=== PATIENT | female | born 1935 | race Two or more races ===

== ENCOUNTER 2018-12-11 09:43 | Inpatient (IN) | payer MEDICARE, MEDICAID ==
[2018-12-11] MEDS ORDERED: Haloperidol Lactate 5 mg/mL 1mL Vial IM STA (10:02)
--- NOTE | 2018-12-11 10:02 | ED Physician Chart ---
ED Chief Complaint/HPI - Patient Information Date Seen:: 12/11/18 Time Seen:: 09:40 Chief Complaint:: Agitation History of Present Illness:: onset x 3 days of agitation and aggressive behavior; no report of trauma, LOC, H /As, S/T, neck pain, cough, C/P, SOB, Abd. Pain, A/N/V/D/C, SIs, or urinary s/s Allergies:: Allergies Allergy/AdvReac Type Severity Reaction Status Date / Time aspirin Allergy Verified 12/11/18 09:52 Penicillins Allergy Verified 12/11/18 09:52 Historian:: Patient, EMS Review:: Nurse's Note Reviewed, Old Chart Reviewed, EMS run form Reviewed ED Review of Systems - Review of Systems General/Constitutional: No fever, No chills, No weight loss, No weakness, No diaphoresis, No edema, No loss of appetite Skin: No skin lesions, No rash, No bruising Head: No headache, No light-headedness Eyes: No loss of vision, No pain, No diplopia ENT: No earache, No nasal drainage, No sore throat, No tinnitus Neck: No neck pain, No swelling, No thyromegaly, No stiffness, No mass noted Cardio Vascular: No chest pain, No palpitations, No PND, No orthopnea, No edema Pulmonary: No SOB, No cough, No sputum, No wheezing GI: No nausea, No vomiting, No diarrhea, No pain, No melena, No hematochezia, No constipation, No hematemesis G/U: No dysuria, No frequency, No hematuria Musculoskeletal: No bone or joint pain, No back pain, No muscle pain Endocrine: No polyuria, No polydipsia Psychiatric: Prior psych history, Depression, Anxiety, No suicidal ideation, No homicidal ideation, No auditory hallucination, No visual hallucination Hematopoietic: No bruising, No lymphadenopathy Allergic/Immuno: No urticaria, No angioedema Neurological: No syncope, No focal symptoms, No weakness, No paresthesia, No headache, No seizure, No dizziness, No confusion, No vertigo ED Past Medical History - Past Medical History Obtainable: Yes Past Medical History: HTN, CAD, Dyslipidemia, PUD/GERD, Dementia Family History: HTN Social History: Non Smoker, No Alcohol, No Drug Use, , Care Facility Surgical History: PEG/GTube Psychiatricy History: Bipolar, Dementia Medication: Reviewed ED Physical Exam - Physical Examination General/Constitutional: Awake, Well-developed, well-nourished, Alert, No distress, GCS 15, Non-toxic appearing, Ambulatory Head: Atraumatic Eyes: Lids, conjuctiva normal, PERRL, EOMI Skin: Nl inspection, No rash, No skin lesions, No ecchymosis, Well hydrated, No lymphadenopathy ENMT: External ears, nose nl, TM canals nl, Nasal exam nl, Lips, teeth, gums nl , Oropharynx nl, Tonsils nl Neck: Nontender, Full ROM w/o pain, No JVD, No nuchal rigidity, No bruit, No mass, No stridor Respiratory: Nl effort/Exclusion, Clear to Auscultation, No Wheeze/Rhonchi/Rales Cardio Vascular: RRR, No murmur, gallop, rubs, NL S1 S2, Carotid/Femoral/Distal pulses equal bilaterally GI: No tenderness/rebounding/guarding, No organomegaly, No hernia, Normal BS's, Nondistended, No mass/bruits, No McBurney tenderness : No CVA tenderness Extremities: No tenderness or effusion, Full ROM, normal strength in all extremities, No edema, Normal digits & nails Neuro/Psych: Alert/oriented, DTR's symmetric, Normal sensory exam, Normal motor strength, Judgement/insight normal, Mood normal, Normal gait, No focal deficits Other Neuro/Psych comments:: + Psychomotor Agitation; no SIs; Mood/Affect: Labile Misc: Normal back, No paraspinal tenderness ED Labs/Radiology/EKG Results - EKG Interpretations EKG Time:: 11:06 Rate & Rhythm: 78; NSR Comments:: RBBB; LAFB; non-specific st-t changes ED Septic Shock - . Is Septic Shock (SBP<90, OR Lactate>4 mmol\L) present?: No ED Reassessment (Disposition) - Reassessment Reassessment Condition:: Improved - Diagnosis Diagnosis:: Agitation; Medical Clearance
[2018-12-11] MEDS ORDERED: Haloperidol Lactate 5 mg/mL 1mL Vial ONE (10:10)
[2018-12-11 11:27] LABS: BASOPHILE ABSOLUTE 0.1 Th/cumm (0-0.2); EOSINOPHILE ABSOLUTE 0.1 Th/cmm (0.1-0.4); HEMATOCRIT 36.3 % (41.0-60); LYMPHOCYTE ABSOLUTE 1.1 Th/cmm (1.5-3.0); MEAN CELL VOLUME 86.2 fl (81-100); MEAN CORPUSCULAR HEMOGLOBIN 28.5 pg (27.0-31.0); MEAN CORPUSCULAR HGB CONC 33.1 pg (28.0-36.0); MEAN PLATELET VOLUME 8.7 fl; MONOCYTE ABSOLUTE 1.1 Th/cmm (0.3-1.0); NEUTROPHILE ABSOLUTE 3.5 Th/cmm (1.8-8.0); PLATELET COUNT 335 Th/cmm (150-400); RED BLOOD COUNT 4.21 Mil/cmm (3.80-5.20); RED CELL DISTRIBUTION WIDTH 14.7 % (11.5-20.0); WHITE BLOOD COUNT 5.9 Th/cmm (4.8-10.8)
[2018-12-11 11:42] LABS: ACETAMINOPHEN < 10.0 ug/mL (10.0-30.0); ALB/GLOB RATIO 1.1 (1.0-1.8); ALBUMIN 3.6 gm/dL (3.7-5.3); ALKALINE PHOSPHATASE 119 U/L (34-104); BILIRUBIN,TOTAL 0.6 mg/dL (0.3-1.0); BUN - UREA NITROGEN 38 mg/dL (7-25); CALCIUM SERUM 9.4 mg/dL (8.6-10.3); CARBON DIOXIDE 29.2 mEq/L (21.0-31.0); CHLORIDE 100 mEq/L (98-107); CHOLESTEROL 144 mg/dL (<200); CREATININE - SERUM 0.6 mg/dL (0.6-1.2); GLUCOSE 90 mg/dL (70-105); HDL -HIGH DENSITY LIPOPROTEIN 57 mg/dL (23-92); POTASSIUM SERUM 3.2 mEq/L (3.5-5.1); SGOT 23 U/L (13-39); SGPT/ALT 16 U/L (7-52); SODIUM SERUM 142 mEq/L (136-145); TOTAL PROTEIN,SERUM 6.9 gm/dL (6.0-8.3); TRIGLYCERIDES 71 mg/dL (<150)
[2018-12-11 11:47] LABS: SALICYLATES (ASPIRIN) < 25.0 mg/L (30.0-100.0)
[2018-12-11] MEDS ORDERED: Potassium Chloride 20 mEq ER Tab PO ONE (13:06)
[2018-12-11 13:41] LABS: LYMPHOCYTE 20 % (20-50); MONOCYTE 15 % (2-10); NEUTROPHILS 65 % (40-80)
[2018-12-11] MEDS ORDERED: D5-0.45NS 1,000 ML IV SCH (17:45)
[2018-12-11 18:44] VITALS: BP 139/71
[2018-12-11] MEDS: KCL 20mEq/100mL Premix 20 MEQ/100 ML PIGGYBACK IV SCH (20:19)
[2018-12-11] MEDS ORDERED: Magnesium Hydroxide (MOM) 30 mL UDC GT PRN (21:29)
[2018-12-11] MEDS ORDERED: Fleet Enema 135 mL RC PRN (21:29)
--- NOTE | 2018-12-11 21:33 | History and Physical ---
History of Present Illness - HPI Chief Complaint: gt replacement HPI: 83-year old female who is a detention resident admitted to [facility] due to gt replacement and agitation. Vital Signs: Last Vital Signs Temp 98.3 F 12/11/18 20:00 Pulse 78 12/11/18 20:00 Resp 20 12/11/18 20:00 BP 101/65 12/11/18 20:00 Pulse Ox 100 12/11/18 20:00 Past Medical History Other History: HTN, CAD, Dyslipidemia, PUD/GERD, Dementia - Past Surgical History Past Surgical History: Other (gt) Social History Smoke: No Alcohol: None Drugs: None Lives: Snf - Medications Home Medications: Home Medication Medication Instructions Recorded Type Acetaminophen [Tylenol Extra 100 mg GT Q4HR PRN 12/11/18 History Strength] Acetaminophen [Tylenol] 650 mg GT Q4H PRN 12/11/18 History Bisacodyl [Dulcolax 10 Mg Supp] 10 mg RC DAILY PRN 12/11/18 History Carbidopa/Levodopa [Sinemet 25-100 1 tab GT TID 12/11/18 History mg Tablet] Cran/Vitc/Mannose/Fos/Bromeln 30 ml GT DAILY 12/11/18 History [Uti-Stat Liquid] Dextran 70/Hypromellose 1 each OP BID PRN 12/11/18 History [Artificial Tears] Docusate Sodium [Colace] 100 mg GT DAILY 12/11/18 History Donepezil Hcl [Aricept] 10 mg GT DAILY 12/11/18 History Fleet Enema 135 ml RC Q48H PRN 12/11/18 History Fluoxetine HCl [Prozac] 20 mg GT DAILY 12/11/18 History Lorazepam [Ativan] 1 mg IM Q12H PRN 12/11/18 History Magnesium Hydroxide [Milk of 30 ml GT HS PRN 12/11/18 History Magnesia] Multivitamin w/ Minerals 1 tab GT DAILY 12/11/18 History [Theragran M] Ondansetron HCl 4 mg GT Q6H PRN 12/11/18 History Valproic Acid [Depakene] 250 mg GT DAILY 12/11/18 History Valproic Acid [Depakene] 500 mg GT 1500 12/11/18 History - Allergies Allergies/Adverse Reactions: Allergies Allergy/AdvReac Type Severity Reaction Status Date / Time aspirin Allergy Verified 12/11/18 09:52 Penicillins Allergy Verified 12/11/18 09:52 Review of Systems - Review of Systems Constitutional: Report: No Significant Eyes: Report: No Significant Respiratory: Report: No Significant Cardiovascular: Report: No Significant Gastrointestinal: Report: No Significant Neurological: Report: No Significant, Weakness Physical Exam - Physical Exam HEENT: Report: Ears Nose Throat within normal limits Neck: Report: Within normal limits Cardiovascular Systems: Report: Regular, Rate and Rhythm Respiratory: Report: Breath Sounds are within normal limits Extremities: Report: Non-tender to palpation. Skin: Report: Warm, Dry Neuro/Psych: Report: Weakness or sensory loss noted. - Lab Results All Lab Results last 24 hours: Laboratory Results - last 24 hr 12/11/18 12/11/18 12/11/18 11:20 11:20 11:20 WBC 5.9 RBC 4.21 Hgb 12.0 Hct 36.3 L MCV 86.2 MCH 28.5 MCHC Differential 33.1 RDW 14.7 Plt Count 335 MPV 8.7 Add Manual Diff YES Neutrophils (Manual) 65 Lymphocytes 20 Monocytes 15 H Sodium 142 Potassium 3.2 L Chloride 100 Carbon Dioxide 29.2 Anion Gap 16.0 BUN 38 H Creatinine 0.6 Est GFR ( Amer) TNP Est GFR (Non-Af Amer) TNP BUN/Creatinine Ratio 63.3 Glucose 90 POC Glucose Calcium 9.4 Total Bilirubin 0.6 AST 23 ALT 16 Alkaline Phosphatase 119 H Troponin I Total Protein 6.9 Albumin 3.6 L Globulin 3.3 Albumin/Globulin Ratio 1.1 Triglycerides 71 Cholesterol 144 LDL Cholesterol Direct 74 L HDL Cholesterol 57 TSH 0.03 L Salicylates < 25.0 L Acetaminophen < 10.0 L Valproic Acid Ethyl Alcohol < 10 12/11/18 12/11/18 12/11/18 11:20 11:20 17:30 WBC RBC Hgb Hct MCV MCH MCHC Differential RDW Plt Count MPV Add Manual Diff Neutrophils (Manual) Lymphocytes Monocytes Sodium Potassium Chloride Carbon Dioxide Anion Gap BUN Creatinine Est GFR ( Amer) Est GFR (Non-Af Amer) BUN/Creatinine Ratio Glucose POC Glucose 70 Calcium Total Bilirubin AST ALT Alkaline Phosphatase Troponin I 0.02 Total Protein Albumin Globulin Albumin/Globulin Ratio Triglycerides Cholesterol LDL Cholesterol Direct HDL Cholesterol TSH Salicylates Acetaminophen Valproic Acid 25.2 L Ethyl Alcohol - Assessment Assessment: Current Active Problems Problem Status Onset GASTRIC FEEDING TUBE DISLODGED, AGITATIO Acute HTN, CAD, Dyslipidemia, PUD/GERD, Dementia - Plan Plan: gi consult ivf hydration cont snf meds as per order sheet
[2018-12-11] MEDS ORDERED: Polyvinyl Alcohol Ophth Soln 15 mL Bottle EACH EYE PRN (23:05)
[2018-12-12] MEDS ORDERED: KCL 20mEq/100mL Premix 20 MEQ/100 ML PIGGYBACK IV ONE (00:55)
[2018-12-12] MEDS: KCL 20mEq/100mL Premix 20 MEQ/100 ML PIGGYBACK IV SCH (00:56)
[2018-12-12 06:17] LABS: URINE SOURCE CLEAN C
[2018-12-12 06:37] LABS: URINE BILIRUBIN MODERATE (NEGATIVE); URINE BLOOD TRACE (NEGATIVE); URINE GLUCOSE (UA) NEGATIVE (NEGATIVE); URINE KETONE >=80 mg/dL (NEGATIVE); URINE LEUKOCYTE ESTERASE TRACE (NEGATIVE); URINE MICROSCOPIC INDICATED? YES; URINE NITRATE NEGATIVE (NEGATIVE); URINE PROTEIN TRACE mg/dL (NEGATIVE)
[2018-12-12 06:38] LABS: URINE CLARITY CLEAR (CLEAR); URINE COLOR YELLOW
[2018-12-12 07:00] LABS: AMPHETAMINE URINE NEGATIVE (NEGATIVE); BARBITURATES URINE NEGATIVE (NEGATIVE); BENZODIAZEPINES QUAL URINE POSITIVE (NEGATIVE); CANNABINOID THC NEGATIVE (NEGATIVE); COCAINE METABOLITE QUAL URINE NEGATIVE (NEGATIVE); METHADONE URINE NEGATIVE (NEGATIVE); METHAMPHETAMINES QUAL URINE NEGATIVE (NEGATIVE); OPIATES (MORPHINE) QUAL. URINE NEGATIVE (NEGATIVE); PHENCYCLIDINE (PCP) URINE NEGATIVE (NEGATIVE); TRICYCLICS (TCA) QUAL. URINE NEGATIVE (NEGATIVE)
[2018-12-12 07:11] LABS: URINE BACTERIA MODERATE /hpf (NONE SEEN); URINE EPITHELIAL CELLS FEW /lpf (FEW); URINE ICTOTEST NEGATIVE (NEGATIVE); URINE RBC 0-2 /hpf (0-5)
[2018-12-12 08:55] LABS: BASOPHILE ABSOLUTE 0.1 Th/cumm (0-0.2); EOSINOPHILE ABSOLUTE 0.1 Th/cmm (0.1-0.4); HEMOGLOBIN 11.9 gm/dL (12-16); LYMPHOCYTE ABSOLUTE 2.5 Th/cmm (1.5-3.0); MEAN CELL VOLUME 86.3 fl (81-100); MEAN CORPUSCULAR HEMOGLOBIN 28.4 pg (27.0-31.0); MEAN CORPUSCULAR HGB CONC 32.9 pg (28.0-36.0); MEAN PLATELET VOLUME 8.5 fl; MONOCYTE ABSOLUTE 1.1 Th/cmm (0.3-1.0); NEUTROPHILE ABSOLUTE 2.9 Th/cmm (1.8-8.0); PLATELET COUNT 325 Th/cmm (150-400); RED BLOOD COUNT 4.17 Mil/cmm (3.80-5.20); RED CELL DISTRIBUTION WIDTH 14.8 % (11.5-20.0); WHITE BLOOD COUNT 6.7 Th/cmm (4.8-10.8)
[2018-12-12] MEDS ORDERED: Non-Formulary Item 1 EA (Cran/Vitc/Mannose/Fos/Bromeln [Uti-Stat Liquid] 30 ML) GT SCH (09:00)
[2018-12-12 09:52] LABS: BAND NEUTROPHILE 37 % (0-10); EOSINOPHIL 0 % (0-5); LYMPHOCYTE 16 % (20-50); MONOCYTE 0 % (2-10); NEUTROPHILS 47 % (40-80)
[2018-12-12] MEDS: Multivitamin w/ Minerals Tab GT SCH (10:04)
[2018-12-12 10:20] LABS: ANION GAP 21.4 (7.0-16.0); BUN - UREA NITROGEN 34 mg/dL (7-25); CALCIUM SERUM 9.7 mg/dL (8.6-10.3); CARBON DIOXIDE 24.8 mEq/L (21.0-31.0); CHLORIDE 103 mEq/L (98-107); CREATININE - SERUM 0.6 mg/dL (0.6-1.2); GLUCOSE 91 mg/dL (70-105); POTASSIUM SERUM 4.2 mEq/L (3.5-5.1); SODIUM SERUM 145 mEq/L (136-145)
[2018-12-12] MEDS: D5-0.45NS 1,000 ML IV SCH (13:15)
--- NOTE | 2018-12-12 18:34 | Internal Medicine Prog Note ---
Internal Medicine Subjective - Subjective Service Date: 12/12/18 Patient seen and examined:: chart reviewed Patient is:: awake, verbal, agitated, confused Patient Complaints of:: other (aggressive behavior.) Per staff patient has:: no adverse event, no episodes of fall, agitated, combative Internal Medicine Objective - Results Result Diagrams: 12/12/18 08:45 12/12/18 08:45 Recent Labs: Laboratory Last Values WBC 6.7 Th/cmm (4.8-10.8) 12/12/18 08:45 RBC 4.17 Mil/cmm (3.80-5.20) 12/12/18 08:45 Hgb 11.9 gm/dL (12-16) L 12/12/18 08:45 Hct 36.0 % (41.0-60) L 12/12/18 08:45 MCV 86.3 fl (81-100) 12/12/18 08:45 MCH 28.4 pg (27.0-31.0) 12/12/18 08:45 MCHC Differential 32.9 pg (28.0-36.0) 12/12/18 08:45 RDW 14.8 % (11.5-20.0) 12/12/18 08:45 Plt Count 325 Th/cmm (150-400) 12/12/18 08:45 MPV 8.5 fl 12/12/18 08:45 Add Manual Diff YES 12/12/18 08:45 Band Neutrophils % 37 % (0-10) H 12/12/18 08:45 Neutrophils (Manual) 47 % (40-80) 12/12/18 08:45 Lymphocytes 16 % (20-50) L 12/12/18 08:45 Monocytes 0 % (2-10) L 12/12/18 08:45 Eosinophils 0 % (0-5) 12/12/18 08:45 Sodium 145 mEq/L (136-145) 12/12/18 08:45 Potassium 4.2 mEq/L (3.5-5.1) 12/12/18 08:45 Chloride 103 mEq/L (98-107) 12/12/18 08:45 Carbon Dioxide 24.8 mEq/L (21.0-31.0) 12/12/18 08:45 Anion Gap 21.4 (7.0-16.0) H 12/12/18 08:45 BUN 34 mg/dL (7-25) H 12/12/18 08:45 Creatinine 0.6 mg/dL (0.6-1.2) 12/12/18 08:45 Est GFR ( Amer) TNP 12/12/18 08:45 Est GFR (Non-Af Amer) TNP 12/12/18 08:45 BUN/Creatinine Ratio 56.7 12/12/18 08:45 Glucose 91 mg/dL (70-105) 12/12/18 08:45 POC Glucose 70 MG/DL (70 - 105) 12/11/18 17:30 Calcium 9.7 mg/dL (8.6-10.3) 12/12/18 08:45 Total Bilirubin 0.6 mg/dL (0.3-1.0) 12/11/18 11:20 AST 23 U/L (13-39) 12/11/18 11:20 ALT 16 U/L (7-52) 12/11/18 11:20 Alkaline Phosphatase 119 U/L (34-104) H 12/11/18 11:20 Troponin I 0.02 ng/mL (0.01-0.05) 12/11/18 11:20 Total Protein 6.9 gm/dL (6.0-8.3) 12/11/18 11:20 Albumin 3.6 gm/dL (3.7-5.3) L 12/11/18 11:20 Globulin 3.3 gm/dL 12/11/18 11:20 Albumin/Globulin Ratio 1.1 (1.0-1.8) 12/11/18 11:20 Triglycerides 71 mg/dL (<150) 12/11/18 11:20 Cholesterol 144 mg/dL (<200) 12/11/18 11:20 LDL Cholesterol Direct 74 mg/dL (75-193) L 12/11/18 11:20 HDL Cholesterol 57 mg/dL (23-92) 12/11/18 11:20 TSH 0.03 uIU/ml (0.34-5.60) L 12/11/18 11:20 Urine Source CLEAN C 12/12/18 04:35 Urine Color YELLOW 12/12/18 04:35 Urine Clarity CLEAR (CLEAR) 12/12/18 04:35 Urine pH 6.0 (4.6 - 8.0) 12/12/18 04:35 Ur Specific [place] 1.025 (1.005-1.030) 12/12/18 04:35 Urine Protein TRACE mg/dL (NEGATIVE) 12/12/18 04:35 Urine Glucose (UA) NEGATIVE mg/dL (NEGATIVE) 12/12/18 04:35 Urine Ketones >=80 mg/dL (NEGATIVE) H 12/12/18 04:35 Urine Blood TRACE (NEGATIVE) 12/12/18 04:35 Urine Nitrate NEGATIVE (NEGATIVE) 12/12/18 04:35 Urine Bilirubin MODERATE (NEGATIVE) H 12/12/18 04:35 Urine Ictotest NEGATIVE (NEGATIVE) 12/12/18 04:35 Urine Urobilinogen 1.0 E.U./dL (0.2 - 1.0) 12/12/18 04:35 Ur Leukocyte Esterase TRACE (NEGATIVE) H 12/12/18 04:35 Urine RBC 0-2 /hpf (0-5) 12/12/18 04:35 Urine WBC 6-10 /hpf (0-5) H 12/12/18 04:35 Ur Epithelial Cells FEW /lpf (FEW) 12/12/18 04:35 Urine Bacteria MODERATE /hpf (NONE SEEN) H 12/12/18 04:35 Salicylates < 25.0 mg/L (30.0-100.0) L 12/11/18 11:20 Urine Opiates Screen NEGATIVE (NEGATIVE) 12/12/18 04:35 Urine Methadone Screen NEGATIVE (NEGATIVE) 12/12/18 04:35 Acetaminophen < 10.0 ug/mL (10.0-30.0) L 12/11/18 11:20 Ur Barbiturates Screen NEGATIVE (NEGATIVE) 12/12/18 04:35 Valproic Acid 25.2 ug/mL (50.0-100.0) L 12/11/18 11:20 Ur Tricyclics Screen NEGATIVE (NEGATIVE) 12/12/18 04:35 Ur Phencyclidine Scrn NEGATIVE (NEGATIVE) 12/12/18 04:35 Amphetamines Screen NEGATIVE (NEGATIVE) 12/12/18 04:35 U Methamphetamines Scrn NEGATIVE (NEGATIVE) 12/12/18 04:35 U Benzodiazepines Scrn POSITIVE (NEGATIVE) H 12/12/18 04:35 U Cocaine Metab Screen NEGATIVE (NEGATIVE) 12/12/18 04:35 U Cannabinoids Screen NEGATIVE (NEGATIVE) 12/12/18 04:35 Ethyl Alcohol < 10 mg/dL (0-10) 12/11/18 11:20 - Physical Exam Vitals and I&O: Vital Signs Temp 97.8 F 12/12/18 16:00 Pulse 64 12/12/18 16:00 Resp 18 12/12/18 16:00 BP 126/89 12/12/18 16:00 Pulse Ox 96 12/12/18 16:00 Intake & Output 12/11/18 12/12/18 12/12/18 18:59 06:59 18:59 Intake Total 100 Output Total 0 Balance 100 Weight (lbs) 45.087 kg 45.087 kg Intake: Intake, IV Amount 100 KCL 20mEq/100mL Premix 20 100 meq In 100 ml @ 50 mls/ hr IV Q2H [facility] Rx#: [id number] Oral 0 Output: Urine/Stool Mix 0 Other: # Voids 0 Weight Source Bedscale Bedscale Active Medications: Current Medications Acetaminophen (Tylenol 650mg/20.3ml Suspension) 1,000 mg GT Q4HR PRN PRN Reason: MODERATE PAIN Stop: 02/09/19 21:27 Acetaminophen (Tylenol 650mg/20.3ml Suspension) 650 mg GT Q4H PRN PRN Reason: MILD PAIN AND TEMP>101 Artificial Tears (Artificial Tears Ophth Soln) 1 drop EACH EYE BID PRN PRN Reason: DRY EYES Stop: 02/09/19 23:04 Bisacodyl (Dulcolax 10 Mg Supp) 10 mg RC DAILY PRN PRN Reason: IF MOM INEFFECTIVE Stop: 02/09/19 21:27 Carbidopa/Levodopa (Sinemet 25mg-100 Mg) 1 tab GT TID [facility] Stop: 02/10/19 08:59 Last Admin: 12/12/18 13:07 Dose: Not Given Docusate Sodium (Colace) 100 mg PO DAILY [facility] Stop: 02/10/19 08:59 Last Admin: 12/12/18 10:02 Dose: Not Given Donepezil HCl (Aricept) 10 mg GT DAILY [facility] Stop: 02/10/19 08:59 Last Admin: 12/12/18 10:03 Dose: Not Given Fluoxetine HCl (Prozac) 20 mg GT DAILY [facility]; Protocol Stop: 02/10/19 08:59 Last Admin: 12/12/18 10:03 Dose: Not Given Dextrose/Sodium Chloride (D5-0.45ns) 1,000 mls @ 75 mls/hr IV .[id number] [facility] Stop: 02/10/19 11:14 Last Admin: 12/12/18 13:15 Dose: 75 mls/hr Lorazepam (Ativan) 1 mg IM Q12H PRN; Protocol PRN Reason: Agitation Stop: 02/09/19 21:28 Lorazepam (Ativan) 1 mg IVP Q4HR PRN; Protocol PRN Reason: Anxiety Stop: 02/10/19 09:28 Magnesium Hydroxide (Milk Of Magnesia) 30 ml GT HS PRN PRN Reason: Constipation Stop: 02/09/19 21:28 Ondansetron HCl (Zofran Odt) 4 mg SL Q6H PRN PRN Reason: Nausea / Vomiting Sodium Phosphate (Fleet Enema) 135 ml RC Q48H PRN PRN Reason: IF DULCOLAX INEFFECTIVE Stop: 02/09/19 21:28 Valproate Sodium (Depakene) 250 mg GT DAILY [facility] Stop: 02/10/19 12:59 Last Admin: 12/12/18 13:17 Dose: Not Given Valproate Sodium (Depakene) 500 mg GT 1500 [facility] Stop: 02/10/19 14:59 Last Admin: 12/12/18 14:17 Dose: Not Given General: demented HEENT: NC/AT, PERRLA Neck: Supple, No JVD Lungs: CTAB Cardiovascular: RRR, Normal S1 Abdomen: soft, non-tender, +GT Extremities: clear Neurological: no change, disorganized Internal Medicine Assmt/Plan - Assessment Assessment: Current Active Problems Problem Status Onset GASTRIC FEEDING TUBE DISLODGED, AGITATIO Acute HTN, CAD, Dyslipidemia, PUD/GERD, Dementia - Plan Plan: followup with GI ivf hydration cont snf meds as per order sheet Nutritional Asmnt/Malnutr-PDOC - Dietary Evaluation Malnutrition Findings (Please click <Entered> for more info): Nutritional Asmnt/Malnutrition Start: 12/12/18 15: 11 Text: Status: Complete Freq: Protocol: Document 12/12/18 15:11 VALENTINAG (Rec: 12/12/18 15:41 VALENTINAG [id number]) Nutritional Asmnt/Malnutrition Patient General Information Nutritional Screening High Risk Diagnosis Gtube replacemnet, agitation Pertinent Medical Hx/Surgical Hx HTn, CAD, dyslipidemia, PUD, GERD, dementia, bipolar Subjective Information Pt seen lying in bed at time of visit. Per H&P, pt was agitated, pulled out Gtube at SNF. Waiting for Gtube replacement. Current Diet Order/ Nutrition Support no diet order Pertinent Medications D5-0.45ns, colace, vancomycin Pertinent Labs 12/12 BUN 34 Nutritional Hx/Data Height 1.65 m Height (Calculated Centimeters) 165.1 Current Weight (lbs) 44.906 kg Weight (Calculated Kilograms) 44.9 Weight (Calculated Grams) 93509.6 [place] Body Weight 125 Body Mass Index (BMI) 16.5 Weight Status Underweight GI Symptoms GI Symptoms None Last BM not indicated Difficult in: None Usual diet at home Glucerna 1.2 at 45ml/hr x 20hr at [facility] per pt chart, providing 1080kcal, 54g protein and 724ml free water, Oral gratification applesauce at noon. Skin Integrity/Comment: small scratch to right hip, g tube scar to abdomen Estimated Nutritional Goals BEE in Kcals: Using Current wt Calories/Kcals/Kg 30-35 Kcals Calculated 5253-5964 Protein: Using Current wt Protein g/k.2-1.4 Protein Calculated 54-63 Fluid: ml 1350-1575ml (1ml/kcal) Nutritional Problem 1. Problem Problem inadequate energy intake Etiology Gtube malfunction Signs/Symptoms: no TF infusion at this time Intervention/Recommendation Comments 1. Initiate TF once Gtube replaced. Recommend Glucerna 1 .2 at 55ml/hr x 20hr. This will provide 1320kcal, 66g protein and 885ml free water, meeting 100% of nutritional needs. 2. Monitor TF rate, tolerance, wt, skin integrity and labs 3. F/U as high risk in 2-3 days Expected Outcomes/Goals Expected Outcomes/Goals 1. Pt to meet at least 90% of nutritional needs via nutrition support with tolerance 2. Wt stability, skin to remain intact, labs to approach WNL.
--- NOTE | 2018-12-12 20:57 | Consultation ---
DATE OF CONSULTATION: 12/12/2018 REQUESTING PHYSICIAN: Dr. Stokes. REASON FOR CONSULTATION: G-tube dislodgement. Thank you for asking me to see this patient in consultation. HISTORY OF PRESENT ILLNESS: This is an 83-year-old female, currently a resident in a fci, who was admitted due to G-tube replacement and agitation. The patient apparently pulled out her G-tube and; however, at the time that she was evaluated by our staff, the G-tube fistula had already closed off. PAST MEDICAL HISTORY: Hypertension, coronary artery disease, dementia, history of peptic ulcer disease and GERD. PAST SURGICAL HISTORY: G-tube. SOCIAL HISTORY: Unable to obtain given the patient's current state. She lives in a fci. REVIEW OF SYSTEMS: Unable to obtain given the patient's current state. MEDICATIONS: Have been reviewed. PHYSICAL EXAMINATION: VITAL SIGNS: Temperature of 98.9, pulse of 95, respiratory rate of 20, blood pressure is 108/90. GENERAL: She is agitated, combative. HEENT: Normocephalic, atraumatic. PERRLA positive. LUNGS: Clear bilaterally. No wheezes, rales or rhonchi. HEART: Regular rate and rhythm, normal S1, S2. ABDOMEN: Soft, nontender. Bowel sounds are positive. EXTREMITIES: Show no lower extremity edema. PSYCHIATRIC: Unable to assess. NEUROLOGIC: Unable to assess. LABORATORY DATA: Hemoglobin of 12, platelet count of 335,000. Potassium 3.2, sodium 142. ASSESSMENT AND PLAN: This is an 83-year-old female who presents with dysphagia and dementia, who presents with dislodged G-tube. 1. Dislodged G-tube. 2. Dysphagia. 3. Dementia. 4. Delirium and agitation. Unfortunately, the gastrostomy tube site is closed off and we will need to take the patient for upper endoscopy with G-tube placement tomorrow afternoon. We will keep the patient on supportive care and management for now and further recommendations to follow after G-tube replacement. Thank you, Dr. Stokes for allowing us to participate in your patient's care. JOB# [id number]
--- NOTE | 2018-12-12 23:21 | Consultation ---
DATE OF CONSULTATION: 12/12/2018 IDENTIFYING INFORMATION: The patient is an 83-year-old female. CHIEF COMPLAINT: The patient has been agitated. HISTORY OF PRESENT ILLNESS: She came from skilled nursing because of G-tube replacement. She has been agitated. The patient is a poor historian, unable to participate in meaningful conversation or make safe plan for self-care. She pulled her G-tube and they have to have mittens put on both of her hands. The patient unable to tell me her age, where she is, why she is here. The only thing she can say is her name. We spoke through a pattern drum maker. PAST PSYCHIATRIC HISTORY: The patient is demented, confused, unable to give any information with a history of dementia, agitation. MEDICAL HISTORY: ALLERGIC TO ASPIRIN, PENICILLIN, came for G-tube placement. She has parkinsonism. MEDICATIONS: She is on Aricept 10 mg at bedtime, Prozac 20 mg daily and Depakote 250 mg via G-tube 750 mg daily. FAMILY HISTORY: Unobtainable. Came from a nursing facility. MENTAL STATUS EXAMINATION: The patient is appropriately dressed, not very well groomed. She was in bed. She was alert, agitated and confused, unable to tell her age, where she is, why she is here. Long and short term memory is poor. Insight and judgment is impaired. IMPRESSION: Psychosis, not otherwise specified, history of depression and dementia. Medical diagnoses as per medical doctor. PLAN: Continue with her medication. She is on Depakote and Ativan as needed. The patient needs follow up with the psychiatrist upon discharge. Also, continue with the Prozac and donepezil. Thank you very much for allowing me to participate in the care of this most interesting lady. JOB# [id number]
[2018-12-13 07:41] LABS: HEMATOCRIT 37.4 % (41.0-60); HEMOGLOBIN 12.1 gm/dL (12-16); MEAN CELL VOLUME 86.9 fl (81-100); MEAN CORPUSCULAR HEMOGLOBIN 28.2 pg (27.0-31.0); MEAN CORPUSCULAR HGB CONC 32.4 pg (28.0-36.0); MEAN PLATELET VOLUME 9.6 fl; PLATELET COUNT 323 Th/cmm (150-400); RED CELL DISTRIBUTION WIDTH 14.9 % (11.5-20.0); WHITE BLOOD COUNT 7.6 Th/cmm (4.8-10.8)
[2018-12-13 07:53] LABS: ALBUMIN 3.7 gm/dL (3.7-5.3); ALKALINE PHOSPHATASE 122 U/L (34-104); ANION GAP 17.1 (7.0-16.0); BILIRUBIN,TOTAL 0.8 mg/dL (0.3-1.0); BUN - UREA NITROGEN 23 mg/dL (7-25); CALCIUM SERUM 9.8 mg/dL (8.6-10.3); CARBON DIOXIDE 26.4 mEq/L (21.0-31.0); CHLORIDE 102 mEq/L (98-107); CREATININE - SERUM 0.6 mg/dL (0.6-1.2); GLUCOSE 108 mg/dL (70-105); POTASSIUM SERUM 3.5 mEq/L (3.5-5.1); SGOT 31 U/L (13-39); SGPT/ALT 19 U/L (7-52); SODIUM SERUM 142 mEq/L (136-145); TOTAL PROTEIN,SERUM 7.6 gm/dL (6.0-8.3)
[2018-12-13 08:07] LABS: EOSINOPHIL 2 % (0-5); LYMPHOCYTE 48 % (20-50); MONOCYTE 8 % (2-10); NEUTROPHILS 42 % (40-80); PLATELET ESTIMATE ADEQUATE (NORMAL)
--- NOTE | 2018-12-13 08:13 | Diagnostic Imaging Report ---
Portable chest x-ray HISTORY: Shortness of breath Allowing for portable technique and a poor inspiration, the heart size is normal. No acute focal prominent processes. No hilar or mediastinal abnormalities. IMPRESSION: 1. No acute abnormalities
[2018-12-13] MEDS: Multivitamin w/ Minerals Tab GT SCH (08:42)
[2018-12-13 14:33] LABS: INR 1.02 (0.5-1.4); PROTHROMBIN TIME (TEST) 10.6 SECONDS (9.5-11.5)
--- NOTE | 2018-12-13 16:08 | Operative Report ---
DATE OF SURGERY: 12/13/2018 PROCEDURES PERFORMED: 1. EGD with biopsy. 2. EGD with PEG tube placement. PREOPERATIVE DIAGNOSES: 1. Dysphagia. 2. G-tube dislodgement with closure of tract. POSTOPERATIVE DIAGNOSES: 1. Mild gastritis. 2. Successful 20-[place] G-tube placed. INDICATION: This is an 83-year-old female, currently a resident in a long term, was admitted due to agitation and pulling out of her G-tube. Her G-tube fistula had already closed off and the patient was brought down for repeat endoscopy with G-tube placement. SEDATION: Per anesthesia. CONSENT: Informed consent was obtained from the patient after explaining the risks, benefits and alternatives of the procedure, which were understood and so stated. EGD: While the patient was in the left lateral decubitus position, a well lubricated GIF-H180 scope was introduced through the patient's mouth and advanced under direct visualization into the esophagus, into the stomach and then up to the second portion of the duodenum. Here, the scope was withdrawn carefully examining the color, texture, anatomy, and the mucosa. The D1 and D2 portions appeared normal. The scope was brought back to the gastric body where retroflexion was performed, which was normal. Scope was then straightened forward into the gastric antrum where there was presence of very mild gastritis. Biopsies were obtained for H. pylori and sent. The stomach was decompressed. The scope was then brought back, an identified spot was then seen from previous gastrostomy tube placement and we used the site to anesthetize. A very small scalpel blade was used to make a small hole and a trocar was used, in which a guidewire was then placed and snared by the endoscope and then brought out the mouth. A 20-[place] G-tube was then attached to the guidewire and then brought out the stomach and secured at the 2 cm position. The endoscope was then brought down to confirm placement. Photo documented. The stomach was decompressed. The scope was withdrawn. The patient tolerated this procedure well. RECOMMENDATIONS: 1. Keep patient n.p.o. for 4 hours, then okay to start tube feeds at 10 mL an hour and go up every 2 hours to goal rate. 2. Dietary recommendations for tube feeding. 3. G-tube care with free water flushes every 6 hours and checking gastric residuals every 6 hours and hold if greater than 100 mL. Thank you for allowing us to participate in this patient's care. [facility]# [id number]
--- NOTE | 2018-12-13 18:05 | Internal Medicine Prog Note ---
Internal Medicine Subjective - Subjective Service Date: 12/13/18 (spitting at nursing staff) Patient is:: awake, verbal, agitated, confused, other (spitting) Patient Complaints of:: other (aggressive behavior.) Per staff patient has:: no adverse event, no episodes of fall, agitated, combative Internal Medicine Objective - Results Result Diagrams: 12/13/18 06:10 12/13/18 06:10 Recent Labs: Laboratory Last Values WBC 7.6 Th/cmm (4.8-10.8) 12/13/18 06:10 RBC 4.30 Mil/cmm (3.80-5.20) 12/13/18 06:10 Hgb 12.1 gm/dL (12-16) 12/13/18 06:10 Hct 37.4 % (41.0-60) L 12/13/18 06:10 MCV 86.9 fl (81-100) 12/13/18 06:10 MCH 28.2 pg (27.0-31.0) 12/13/18 06:10 MCHC Differential 32.4 pg (28.0-36.0) 12/13/18 06:10 RDW 14.9 % (11.5-20.0) 12/13/18 06:10 Plt Count 323 Th/cmm (150-400) 12/13/18 06:10 MPV 9.6 fl 12/13/18 06:10 Add Manual Diff YES 12/13/18 06:10 Band Neutrophils % 37 % (0-10) H 12/12/18 08:45 Neutrophils (Manual) 42 % (40-80) 12/13/18 06:10 Lymphocytes 48 % (20-50) 12/13/18 06:10 Monocytes 8 % (2-10) 12/13/18 06:10 Eosinophils 2 % (0-5) 12/13/18 06:10 Platelet Estimate ADEQUATE (NORMAL) 12/13/18 06:10 PT 10.6 SECONDS (9.5-11.5) 12/13/18 06:10 INR 1.02 (0.5-1.4) 12/13/18 06:10 Sodium 142 mEq/L (136-145) 12/13/18 06:10 Potassium 3.5 mEq/L (3.5-5.1) 12/13/18 06:10 Chloride 102 mEq/L (98-107) 12/13/18 06:10 Carbon Dioxide 26.4 mEq/L (21.0-31.0) 12/13/18 06:10 Anion Gap 17.1 (7.0-16.0) H 12/13/18 06:10 BUN 23 mg/dL (7-25) 12/13/18 06:10 Creatinine 0.6 mg/dL (0.6-1.2) 12/13/18 06:10 Est GFR ( Amer) TNP 12/13/18 06:10 Est GFR (Non-Af Amer) TNP 12/13/18 06:10 BUN/Creatinine Ratio 38.3 12/13/18 06:10 Glucose 108 mg/dL (70-105) H 12/13/18 06:10 POC Glucose 70 MG/DL (70 - 105) 12/11/18 17:30 Calcium 9.8 mg/dL (8.6-10.3) 12/13/18 06:10 Total Bilirubin 0.8 mg/dL (0.3-1.0) 12/13/18 06:10 AST 31 U/L (13-39) 12/13/18 06:10 ALT 19 U/L (7-52) 12/13/18 06:10 Alkaline Phosphatase 122 U/L (34-104) H 12/13/18 06:10 Troponin I 0.02 ng/mL (0.01-0.05) 12/11/18 11:20 Total Protein 7.6 gm/dL (6.0-8.3) 12/13/18 06:10 Albumin 3.7 gm/dL (3.7-5.3) 12/13/18 06:10 Globulin 3.9 gm/dL 12/13/18 06:10 Albumin/Globulin Ratio 1.0 (1.0-1.8) 12/13/18 06:10 Triglycerides 71 mg/dL (<150) 12/11/18 11:20 Cholesterol 144 mg/dL (<200) 12/11/18 11:20 LDL Cholesterol Direct 74 mg/dL (75-193) L 12/11/18 11:20 HDL Cholesterol 57 mg/dL (23-92) 12/11/18 11:20 TSH 0.03 uIU/ml (0.34-5.60) L 12/11/18 11:20 Urine Source CLEAN C 12/12/18 04:35 Urine Color YELLOW 12/12/18 04:35 Urine Clarity CLEAR (CLEAR) 12/12/18 04:35 Urine pH 6.0 (4.6 - 8.0) 12/12/18 04:35 Ur Specific [place] 1.025 (1.005-1.030) 12/12/18 04:35 Urine Protein TRACE mg/dL (NEGATIVE) 12/12/18 04:35 Urine Glucose (UA) NEGATIVE mg/dL (NEGATIVE) 12/12/18 04:35 Urine Ketones >=80 mg/dL (NEGATIVE) H 12/12/18 04:35 Urine Blood TRACE (NEGATIVE) 12/12/18 04:35 Urine Nitrate NEGATIVE (NEGATIVE) 12/12/18 04:35 Urine Bilirubin MODERATE (NEGATIVE) H 12/12/18 04:35 Urine Ictotest NEGATIVE (NEGATIVE) 12/12/18 04:35 Urine Urobilinogen 1.0 E.U./dL (0.2 - 1.0) 12/12/18 04:35 Ur Leukocyte Esterase TRACE (NEGATIVE) H 12/12/18 04:35 Urine RBC 0-2 /hpf (0-5) 12/12/18 04:35 Urine WBC 6-10 /hpf (0-5) H 12/12/18 04:35 Ur Epithelial Cells FEW /lpf (FEW) 12/12/18 04:35 Urine Bacteria MODERATE /hpf (NONE SEEN) H 12/12/18 04:35 Salicylates < 25.0 mg/L (30.0-100.0) L 12/11/18 11:20 Urine Opiates Screen NEGATIVE (NEGATIVE) 12/12/18 04:35 Urine Methadone Screen NEGATIVE (NEGATIVE) 12/12/18 04:35 Acetaminophen < 10.0 ug/mL (10.0-30.0) L 12/11/18 11:20 Ur Barbiturates Screen NEGATIVE (NEGATIVE) 12/12/18 04:35 Valproic Acid 25.2 ug/mL (50.0-100.0) L 12/11/18 11:20 Ur Tricyclics Screen NEGATIVE (NEGATIVE) 12/12/18 04:35 Ur Phencyclidine Scrn NEGATIVE (NEGATIVE) 12/12/18 04:35 Amphetamines Screen NEGATIVE (NEGATIVE) 12/12/18 04:35 U Methamphetamines Scrn NEGATIVE (NEGATIVE) 12/12/18 04:35 U Benzodiazepines Scrn POSITIVE (NEGATIVE) H 12/12/18 04:35 U Cocaine Metab Screen NEGATIVE (NEGATIVE) 12/12/18 04:35 U Cannabinoids Screen NEGATIVE (NEGATIVE) 12/12/18 04:35 Ethyl Alcohol < 10 mg/dL (0-10) 12/11/18 11:20 RPR NONREACTIVE (NONREACTIVE) 12/11/18 11:20 - Physical Exam Vitals and I&O: Vital Signs Temp 97.4 F 12/13/18 13:00 Pulse 116 12/13/18 13:00 Resp 18 12/13/18 13:00 BP 120/94 12/13/18 13:00 Pulse Ox 92 12/13/18 11:42 Intake & Output 12/12/18 12/13/18 12/13/18 18:59 06:59 18:59 Weight (lbs) 100 lb 100 lb Other: # Voids 2 # Bowel Movements 0 Weight Source Bedscale Bedscale Active Medications: Current Medications Acetaminophen (Tylenol 650mg/20.3ml Suspension) 1,000 mg GT Q4HR PRN PRN Reason: MODERATE PAIN Stop: 02/09/19 21:27 Acetaminophen (Tylenol 650mg/20.3ml Suspension) 650 mg GT Q4H PRN PRN Reason: MILD PAIN AND TEMP>101 Artificial Tears (Artificial Tears Ophth Soln) 1 drop EACH EYE BID PRN PRN Reason: DRY EYES Stop: 02/09/19 23:04 Bisacodyl (Dulcolax 10 Mg Supp) 10 mg RC DAILY PRN PRN Reason: IF MOM INEFFECTIVE Stop: 02/09/19 21:27 Carbidopa/Levodopa (Sinemet 25mg-100 Mg) 1 tab GT TID [facility] Stop: 02/10/19 08:59 Last Admin: 12/13/18 14:26 Dose: Not Given Docusate Sodium (Colace) 100 mg PO DAILY [facility] Stop: 02/10/19 08:59 Last Admin: 12/13/18 08:40 Dose: Not Given Donepezil HCl (Aricept) 10 mg GT DAILY [facility] Stop: 02/10/19 08:59 Last Admin: 12/13/18 08:40 Dose: Not Given Fluoxetine HCl (Prozac) 20 mg GT DAILY [facility]; Protocol Stop: 02/10/19 08:59 Last Admin: 12/13/18 08:42 Dose: Not Given Dextrose/Sodium Chloride (D5-0.45ns) 1,000 mls @ 75 mls/hr IV .[id number] [facility] Stop: 02/10/19 11:14 Last Admin: 12/12/18 13:15 Dose: 75 mls/hr Lorazepam (Ativan) 1 mg IM Q12H PRN; Protocol PRN Reason: Agitation Stop: 02/09/19 21:28 Lorazepam (Ativan) 1 mg IVP Q4HR PRN; Protocol PRN Reason: Anxiety Stop: 02/10/19 09:28 Last Admin: 12/12/18 23:08 Dose: 1 mg Magnesium Hydroxide (Milk Of Magnesia) 30 ml GT HS PRN PRN Reason: Constipation Stop: 02/09/19 21:28 Ondansetron HCl (Zofran Odt) 4 mg SL Q6H PRN PRN Reason: Nausea / Vomiting Risperidone (Risperdal) 0.25 mg PO Q12HR [facility]; Protocol Stop: 02/12/19 08:59 Risperidone (Risperdal) 0.25 mg PO X1 ONE; Protocol Stop: 12/13/18 21:01 Sodium Phosphate (Fleet Enema) 135 ml RC Q48H PRN PRN Reason: IF DULCOLAX INEFFECTIVE Stop: 02/09/19 21:28 Valproate Sodium (Depakene) 250 mg GT DAILY [facility] Stop: 02/10/19 12:59 Last Admin: 12/13/18 08:42 Dose: Not Given Valproate Sodium (Depakene) 500 mg GT 1500 [facility] Stop: 02/10/19 14:59 Last Admin: 12/13/18 15:00 Dose: Not Given General: demented HEENT: NC/AT, PERRLA Neck: Supple, No JVD Lungs: CTAB Cardiovascular: RRR, Normal S1 Abdomen: soft, non-tender, +GT Extremities: clear Neurological: no change, disorganized Internal Medicine Assmt/Plan - Assessment Assessment: HTN, CAD, Dyslipidemia, PUD/GERD, Dementia s/p peg replacement - Plan Plan: aspiration precautions ivf for hydration safety precautions am labs continue current plan of care Nutritional Asmnt/Malnutr-PDOC - Dietary Evaluation Malnutrition Findings (Please click <Entered> for more info): Nutritional Asmnt/Malnutrition Start: 12/12/18 15: 11 Text: Status: Complete Freq: Protocol: Document 12/12/18 15:11 JIMENA (Rec: 12/12/18 15:41 [email or web address] [id number]) Nutritional Asmnt/Malnutrition Patient General Information Nutritional Screening High Risk Diagnosis Gtube replacemnet, agitation Pertinent Medical Hx/Surgical Hx HTn, CAD, dyslipidemia, PUD, GERD, dementia, bipolar Subjective Information Pt seen lying in bed at time of visit. Per H&P, pt was agitated, pulled out Gtube at SNF. Waiting for Gtube replacement. Current Diet Order/ Nutrition Support no diet order Pertinent Medications D5-0.45ns, colace, vancomycin Pertinent Labs 12/12 BUN 34 Nutritional Hx/Data Height 5 ft 5 in Height (Calculated Centimeters) 165.1 Current Weight (lbs) 99 lb Weight (Calculated Kilograms) 44.9 Weight (Calculated Grams) 61360.6 [place] Body Weight 125 Body Mass Index (BMI) 16.5 Weight Status Underweight GI Symptoms GI Symptoms None Last BM not indicated Difficult in: None Usual diet at home Glucerna 1.2 at 45ml/hr x 20hr at [facility] per pt chart, providing 1080kcal, 54g protein and 724ml free water, Oral gratification applesauce at noon. Skin Integrity/Comment: small scratch to right hip, g tube scar to abdomen Estimated Nutritional Goals BEE in Kcals: Using Current wt Calories/Kcals/Kg 30-35 Kcals Calculated 5052-3098 Protein: Using Current wt Protein g/k.2-1.4 Protein Calculated 54-63 Fluid: ml 1350-1575ml (1ml/kcal) Nutritional Problem 1. Problem Problem inadequate energy intake Etiology Gtube malfunction Signs/Symptoms: no TF infusion at this time Intervention/Recommendation Comments 1. Initiate TF once Gtube replaced. Recommend Glucerna 1 .2 at 55ml/hr x 20hr. This will provide 1320kcal, 66g protein and 885ml free water, meeting 100% of nutritional needs. 2. Monitor TF rate, tolerance, wt, skin integrity and labs 3. F/U as high risk in 2-3 days Expected Outcomes/Goals Expected Outcomes/Goals 1. Pt to meet at least 90% of nutritional needs via nutrition support with tolerance 2. Wt stability, skin to remain intact, labs to approach WNL.
[2018-12-14 06:29] LABS: HEMATOCRIT 31.3 % (41.0-60); HEMOGLOBIN 10.6 gm/dL (12-16); MEAN CELL VOLUME 86.1 fl (81-100); MEAN CORPUSCULAR HEMOGLOBIN 29.1 pg (27.0-31.0); MEAN CORPUSCULAR HGB CONC 33.9 pg (28.0-36.0); MEAN PLATELET VOLUME 9.5 fl; RED BLOOD COUNT 3.63 Mil/cmm (3.80-5.20); RED CELL DISTRIBUTION WIDTH 14.7 % (11.5-20.0); WHITE BLOOD COUNT 8.6 Th/cmm (4.8-10.8)
[2018-12-14 06:37] LABS: PLATELET COUNT 257 Th/cmm (150-400)
[2018-12-14 06:41] LABS: ANION GAP 13.6 (7.0-16.0); BUN - UREA NITROGEN 17 mg/dL (7-25); CALCIUM SERUM 8.8 mg/dL (8.6-10.3); CARBON DIOXIDE 24.6 mEq/L (21.0-31.0); CHLORIDE 105 mEq/L (98-107); CREATININE - SERUM 0.4 mg/dL (0.6-1.2); GLUCOSE 109 mg/dL (70-105); POTASSIUM SERUM 3.2 mEq/L (3.5-5.1); SODIUM SERUM 140 mEq/L (136-145)
[2018-12-14 07:02] LABS: % BASOPHILS 0.5 % (0.0-2.0); % EOSINOPHILS 1.8 % (0.0-5.0); % LYMPHOCYTES 16.8 % (20.0-50.0); % NEUTROPHILS 70.6 % (40.0-80.0); EOSINOPHILE ABSOLUTE 0.2 Th/cmm (0.1-0.4); LYMPHOCYTE ABSOLUTE 1.4 Th/cmm (1.5-3.0); MONOCYTE ABSOLUTE 0.9 Th/cmm (0.3-1.0); NEUTROPHILE ABSOLUTE 6.1 Th/cmm (1.8-8.0)
[2018-12-14 07:03] LABS: LYMPHOCYTE 0 % (20-50)
--- NOTE | 2018-12-14 07:31 | Progress Notes ---
DATE: SUBJECTIVE: Chart reviewed and the patient interviewed. Also discussed the patient's condition with the staff and reviewed records and labs. The patient still has episodes of yelling and screaming and she is still easily agitated and restless. The patient also still has difficulty following directions. The patient also is angry in her responses and answers. Otherwise, the patient is compliant with taking medications with no side effects of medications. ASSESSMENT: The patient is still agitated and psychotic. TREATMENT PLAN: Continue to monitor behavior and condition closely. Also, continue to work on her agitation. Also, we will also get Depakote blood level and we will increase Risperdal to 0.5 mg twice a day. JOB# [id number]
--- NOTE | 2018-12-14 07:39 | GI Progress Note ---
Subjective - Review of Systems Subjective: NO EVENTS Objective - Results Result Diagrams: 12/14/18 05:00 12/14/18 05:00 Recent Labs: Laboratory Last Values WBC 8.6 Th/cmm (4.8-10.8) 12/14/18 05:00 RBC 3.63 Mil/cmm (3.80-5.20) L 12/14/18 05:00 Hgb 10.6 gm/dL (12-16) L 12/14/18 05:00 Hct 31.3 % (41.0-60) L D 12/14/18 05:00 MCV 86.1 fl (81-100) 12/14/18 05:00 MCH 29.1 pg (27.0-31.0) 12/14/18 05:00 MCHC Differential 33.9 pg (28.0-36.0) 12/14/18 05:00 RDW 14.7 % (11.5-20.0) 12/14/18 05:00 Plt Count 257 Th/cmm (150-400) D 12/14/18 05:00 MPV 9.5 fl 12/14/18 05:00 Add Manual Diff 12/14/18 05:00 Neutrophils % 70.6 % (40.0-80.0) 12/14/18 05:00 Band Neutrophils % 37 % (0-10) H 12/12/18 08:45 Lymphocytes % 16.8 % (20.0-50.0) L 12/14/18 05:00 Monocytes % 10.0 % (2.0-10.0) 12/14/18 05:00 Eosinophils % 1.8 % (0.0-5.0) 12/14/18 05:00 Basophils % 0.5 % (0.0-2.0) 12/14/18 05:00 Neutrophils (Manual) 42 % (40-80) 12/13/18 06:10 Lymphocytes 0 % (20-50) L 12/14/18 05:00 Monocytes 8 % (2-10) 12/13/18 06:10 Eosinophils 2 % (0-5) 12/13/18 06:10 Platelet Estimate ADEQUATE (NORMAL) 12/13/18 06:10 PT 10.6 SECONDS (9.5-11.5) 12/13/18 06:10 INR 1.02 (0.5-1.4) 12/13/18 06:10 Sodium 140 mEq/L (136-145) 12/14/18 05:00 Potassium 3.2 mEq/L (3.5-5.1) L 12/14/18 05:00 Chloride 105 mEq/L (98-107) 12/14/18 05:00 Carbon Dioxide 24.6 mEq/L (21.0-31.0) 12/14/18 05:00 Anion Gap 13.6 (7.0-16.0) 12/14/18 05:00 BUN 17 mg/dL (7-25) 12/14/18 05:00 Creatinine 0.4 mg/dL (0.6-1.2) L 12/14/18 05:00 Est GFR ( Amer) TNP 12/14/18 05:00 Est GFR (Non-Af Amer) TNP 12/14/18 05:00 BUN/Creatinine Ratio 42.5 12/14/18 05:00 Glucose 109 mg/dL (70-105) H 12/14/18 05:00 POC Glucose 70 MG/DL (70 - 105) 12/11/18 17:30 Calcium 8.8 mg/dL (8.6-10.3) 12/14/18 05:00 Total Bilirubin 0.8 mg/dL (0.3-1.0) 12/13/18 06:10 AST 31 U/L (13-39) 12/13/18 06:10 ALT 19 U/L (7-52) 12/13/18 06:10 Alkaline Phosphatase 122 U/L (34-104) H 12/13/18 06:10 Troponin I 0.02 ng/mL (0.01-0.05) 12/11/18 11:20 Total Protein 7.6 gm/dL (6.0-8.3) 12/13/18 06:10 Albumin 3.7 gm/dL (3.7-5.3) 12/13/18 06:10 Globulin 3.9 gm/dL 12/13/18 06:10 Albumin/Globulin Ratio 1.0 (1.0-1.8) 12/13/18 06:10 Triglycerides 71 mg/dL (<150) 12/11/18 11:20 Cholesterol 144 mg/dL (<200) 12/11/18 11:20 LDL Cholesterol Direct 74 mg/dL (75-193) L 12/11/18 11:20 HDL Cholesterol 57 mg/dL (23-92) 12/11/18 11:20 TSH 0.03 uIU/ml (0.34-5.60) L 12/11/18 11:20 Urine Source CLEAN C 12/12/18 04:35 Urine Color YELLOW 12/12/18 04:35 Urine Clarity CLEAR (CLEAR) 12/12/18 04:35 Urine pH 6.0 (4.6 - 8.0) 12/12/18 04:35 Ur Specific [place] 1.025 (1.005-1.030) 12/12/18 04:35 Urine Protein TRACE mg/dL (NEGATIVE) 12/12/18 04:35 Urine Glucose (UA) NEGATIVE mg/dL (NEGATIVE) 12/12/18 04:35 Urine Ketones >=80 mg/dL (NEGATIVE) H 12/12/18 04:35 Urine Blood TRACE (NEGATIVE) 12/12/18 04:35 Urine Nitrate NEGATIVE (NEGATIVE) 12/12/18 04:35 Urine Bilirubin MODERATE (NEGATIVE) H 12/12/18 04:35 Urine Ictotest NEGATIVE (NEGATIVE) 12/12/18 04:35 Urine Urobilinogen 1.0 E.U./dL (0.2 - 1.0) 12/12/18 04:35 Ur Leukocyte Esterase TRACE (NEGATIVE) H 12/12/18 04:35 Urine RBC 0-2 /hpf (0-5) 12/12/18 04:35 Urine WBC 6-10 /hpf (0-5) H 12/12/18 04:35 Ur Epithelial Cells FEW /lpf (FEW) 12/12/18 04:35 Urine Bacteria MODERATE /hpf (NONE SEEN) H 12/12/18 04:35 Salicylates < 25.0 mg/L (30.0-100.0) L 12/11/18 11:20 Urine Opiates Screen NEGATIVE (NEGATIVE) 12/12/18 04:35 Urine Methadone Screen NEGATIVE (NEGATIVE) 12/12/18 04:35 Acetaminophen < 10.0 ug/mL (10.0-30.0) L 12/11/18 11:20 Ur Barbiturates Screen NEGATIVE (NEGATIVE) 12/12/18 04:35 Valproic Acid < 10.0 ug/mL (50.0-100.0) L 12/14/18 05:00 Ur Tricyclics Screen NEGATIVE (NEGATIVE) 12/12/18 04:35 Ur Phencyclidine Scrn NEGATIVE (NEGATIVE) 12/12/18 04:35 Amphetamines Screen NEGATIVE (NEGATIVE) 12/12/18 04:35 U Methamphetamines Scrn NEGATIVE (NEGATIVE) 12/12/18 04:35 U Benzodiazepines Scrn POSITIVE (NEGATIVE) H 12/12/18 04:35 U Cocaine Metab Screen NEGATIVE (NEGATIVE) 12/12/18 04:35 U Cannabinoids Screen NEGATIVE (NEGATIVE) 12/12/18 04:35 Ethyl Alcohol < 10 mg/dL (0-10) 12/11/18 11:20 RPR NONREACTIVE (NONREACTIVE) 12/11/18 11:20 - Physical Exam Vitals and I&O: Vital Signs Temp 98.8 F 12/14/18 05:00 Pulse 60 12/14/18 05:00 Resp 18 12/14/18 05:00 BP 130/90 12/14/18 05:00 Pulse Ox 98 12/14/18 04:59 Intake & Output 12/13/18 12/14/18 12/14/18 18:59 06:59 18:59 Intake Total 240 Balance 240 Weight (lbs) 45.359 kg 45.359 kg Intake: Tube Feeding 140 Other 100 Other: # Voids 2 # Bowel Movements 2 Weight Source Bedscale Bedscale Active Medications: Current Medications Acetaminophen (Tylenol 650mg/20.3ml Suspension) 1,000 mg GT Q4HR PRN PRN Reason: MODERATE PAIN Stop: 02/09/19 21:27 Acetaminophen (Tylenol 650mg/20.3ml Suspension) 650 mg GT Q4H PRN PRN Reason: MILD PAIN AND TEMP>101 Artificial Tears (Artificial Tears Ophth Soln) 1 drop EACH EYE BID PRN PRN Reason: DRY EYES Stop: 02/09/19 23:04 Bisacodyl (Dulcolax 10 Mg Supp) 10 mg RC DAILY PRN PRN Reason: IF MOM INEFFECTIVE Stop: 02/09/19 21:27 Carbidopa/Levodopa (Sinemet 25mg-100 Mg) 1 tab GT TID [facility] Stop: 02/10/19 08:59 Last Admin: 12/13/18 20:34 Dose: 1 tab Docusate Sodium (Colace) 100 mg PO DAILY [facility] Stop: 02/10/19 08:59 Last Admin: 12/13/18 08:40 Dose: Not Given Donepezil HCl (Aricept) 10 mg GT DAILY [facility] Stop: 02/10/19 08:59 Last Admin: 12/13/18 08:40 Dose: Not Given Fluoxetine HCl (Prozac) 20 mg GT DAILY [facility]; Protocol Stop: 02/10/19 08:59 Last Admin: 12/13/18 08:42 Dose: Not Given Dextrose/Sodium Chloride (D5-0.45ns) 1,000 mls @ 75 mls/hr IV .[id number] [facility] Stop: 02/10/19 11:14 Last Admin: 12/12/18 13:15 Dose: 75 mls/hr Lorazepam (Ativan) 1 mg IM Q12H PRN; Protocol PRN Reason: Agitation Stop: 02/09/19 21:28 Last Admin: 12/13/18 18:37 Dose: 1 mg Lorazepam (Ativan) 1 mg IVP Q4HR PRN; Protocol PRN Reason: Anxiety Stop: 02/10/19 09:28 Last Admin: 12/12/18 23:08 Dose: 1 mg Magnesium Hydroxide (Milk Of Magnesia) 30 ml GT HS PRN PRN Reason: Constipation Stop: 02/09/19 21:28 Ondansetron HCl (Zofran Odt) 4 mg SL Q6H PRN PRN Reason: Nausea / Vomiting Risperidone (Risperdal) 0.5 mg PO Q12HR [facility]; Protocol Stop: 02/12/19 08:59 Sodium Phosphate (Fleet Enema) 135 ml RC Q48H PRN PRN Reason: IF DULCOLAX INEFFECTIVE Stop: 02/09/19 21:28 Valproate Sodium (Depakene) 250 mg GT DAILY [facility] Stop: 02/10/19 12:59 Last Admin: 12/13/18 08:42 Dose: Not Given Valproate Sodium (Depakene) 500 mg GT 1500 [facility] Stop: 02/10/19 14:59 Last Admin: 12/13/18 15:00 Dose: Not Given Assessment/Plan - Problem List Patient Problems: All Active Problems GASTRIC FEEDING TUBE DISLODGED, AGITATIO (Acute) - Assessment Assessment: 83 YO FEMALE WITH DYSPHAGIA S/P PEG AND EGD SHOWED GASTRITIS ELEVATED ALK PHOS HAS ANEMIA 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
[2018-12-14 08:07] LABS: ALB/GLOB RATIO 0.9 (1.0-1.8); BILIRUBIN,DIRECT 0.3 mg/dL (0.0-0.2); BILIRUBIN,TOTAL 0.8 mg/dL (0.3-1.0); TOTAL PROTEIN,SERUM 6.3 gm/dL (6.0-8.3)
[2018-12-14] MEDS ORDERED: Potassium Chloride Elixir 20 mEq /15 mL UDC GT ONE (09:00)
[2018-12-14] MEDS: Multivitamin w/ Minerals Tab GT SCH (09:07)
[2018-12-14] MEDS: D5-0.45NS 1,000 ML IV SCH (11:05)
--- NOTE | 2018-12-14 15:44 | Internal Medicine Prog Note ---
Internal Medicine Subjective - Subjective Service Date: 12/14/18 Patient seen and examined:: chart reviewed Patient is:: awake, verbal, agitated, confused, other (dysphagia.) Patient Complaints of:: other (aggressive behavior.) Per staff patient has:: no adverse event, no episodes of fall, agitated, combative Internal Medicine Objective - Results Result Diagrams: 12/14/18 05:00 12/14/18 05:00 Recent Labs: Laboratory Last Values WBC 8.6 Th/cmm (4.8-10.8) 12/14/18 05:00 RBC 3.63 Mil/cmm (3.80-5.20) L 12/14/18 05:00 Hgb 10.6 gm/dL (12-16) L 12/14/18 05:00 Hct 31.3 % (41.0-60) L D 12/14/18 05:00 MCV 86.1 fl (81-100) 12/14/18 05:00 MCH 29.1 pg (27.0-31.0) 12/14/18 05:00 MCHC Differential 33.9 pg (28.0-36.0) 12/14/18 05:00 RDW 14.7 % (11.5-20.0) 12/14/18 05:00 Plt Count 257 Th/cmm (150-400) D 12/14/18 05:00 MPV 9.5 fl 12/14/18 05:00 Add Manual Diff 12/14/18 05:00 Neutrophils % 70.6 % (40.0-80.0) 12/14/18 05:00 Band Neutrophils % 37 % (0-10) H 12/12/18 08:45 Lymphocytes % 16.8 % (20.0-50.0) L 12/14/18 05:00 Monocytes % 10.0 % (2.0-10.0) 12/14/18 05:00 Eosinophils % 1.8 % (0.0-5.0) 12/14/18 05:00 Basophils % 0.5 % (0.0-2.0) 12/14/18 05:00 Neutrophils (Manual) 42 % (40-80) 12/13/18 06:10 Lymphocytes 0 % (20-50) L 12/14/18 05:00 Monocytes 8 % (2-10) 12/13/18 06:10 Eosinophils 2 % (0-5) 12/13/18 06:10 Platelet Estimate ADEQUATE (NORMAL) 12/13/18 06:10 PT 10.6 SECONDS (9.5-11.5) 12/13/18 06:10 INR 1.02 (0.5-1.4) 12/13/18 06:10 Sodium 140 mEq/L (136-145) 12/14/18 05:00 Potassium 3.2 mEq/L (3.5-5.1) L 12/14/18 05:00 Chloride 105 mEq/L (98-107) 12/14/18 05:00 Carbon Dioxide 24.6 mEq/L (21.0-31.0) 12/14/18 05:00 Anion Gap 13.6 (7.0-16.0) 12/14/18 05:00 BUN 17 mg/dL (7-25) 12/14/18 05:00 Creatinine 0.4 mg/dL (0.6-1.2) L 12/14/18 05:00 Est GFR ( Amer) TNP 12/14/18 05:00 Est GFR (Non-Af Amer) TNP 12/14/18 05:00 BUN/Creatinine Ratio 42.5 12/14/18 05:00 Glucose 109 mg/dL (70-105) H 12/14/18 05:00 POC Glucose 70 MG/DL (70 - 105) 12/11/18 17:30 Calcium 8.8 mg/dL (8.6-10.3) 12/14/18 05:00 Total Bilirubin 0.8 mg/dL (0.3-1.0) 12/14/18 05:00 Direct Bilirubin 0.30 mg/dL (0.0-0.2) H 12/14/18 05:00 AST 27 U/L (13-39) 12/14/18 05:00 ALT 11 U/L (7-52) 12/14/18 05:00 Alkaline Phosphatase 100 U/L (34-104) 12/14/18 05:00 Troponin I 0.02 ng/mL (0.01-0.05) 12/11/18 11:20 Total Protein 6.3 gm/dL (6.0-8.3) 12/14/18 05:00 Albumin 3.0 gm/dL (3.7-5.3) L 12/14/18 05:00 Globulin 3.3 gm/dL 12/14/18 05:00 Albumin/Globulin Ratio 0.9 (1.0-1.8) L 12/14/18 05:00 Triglycerides 71 mg/dL (<150) 12/11/18 11:20 Cholesterol 144 mg/dL (<200) 12/11/18 11:20 LDL Cholesterol Direct 74 mg/dL (75-193) L 12/11/18 11:20 HDL Cholesterol 57 mg/dL (23-92) 12/11/18 11:20 TSH 0.03 uIU/ml (0.34-5.60) L 12/11/18 11:20 Urine Source CLEAN C 12/12/18 04:35 Urine Color YELLOW 12/12/18 04:35 Urine Clarity CLEAR (CLEAR) 12/12/18 04:35 Urine pH 6.0 (4.6 - 8.0) 12/12/18 04:35 Ur Specific [place] 1.025 (1.005-1.030) 12/12/18 04:35 Urine Protein TRACE mg/dL (NEGATIVE) 12/12/18 04:35 Urine Glucose (UA) NEGATIVE mg/dL (NEGATIVE) 12/12/18 04:35 Urine Ketones >=80 mg/dL (NEGATIVE) H 12/12/18 04:35 Urine Blood TRACE (NEGATIVE) 12/12/18 04:35 Urine Nitrate NEGATIVE (NEGATIVE) 12/12/18 04:35 Urine Bilirubin MODERATE (NEGATIVE) H 12/12/18 04:35 Urine Ictotest NEGATIVE (NEGATIVE) 12/12/18 04:35 Urine Urobilinogen 1.0 E.U./dL (0.2 - 1.0) 12/12/18 04:35 Ur Leukocyte Esterase TRACE (NEGATIVE) H 12/12/18 04:35 Urine RBC 0-2 /hpf (0-5) 12/12/18 04:35 Urine WBC 6-10 /hpf (0-5) H 12/12/18 04:35 Ur Epithelial Cells FEW /lpf (FEW) 12/12/18 04:35 Urine Bacteria MODERATE /hpf (NONE SEEN) H 12/12/18 04:35 Salicylates < 25.0 mg/L (30.0-100.0) L 12/11/18 11:20 Urine Opiates Screen NEGATIVE (NEGATIVE) 12/12/18 04:35 Urine Methadone Screen NEGATIVE (NEGATIVE) 12/12/18 04:35 Acetaminophen < 10.0 ug/mL (10.0-30.0) L 12/11/18 11:20 Ur Barbiturates Screen NEGATIVE (NEGATIVE) 12/12/18 04:35 Valproic Acid < 10.0 ug/mL (50.0-100.0) L 12/14/18 05:00 Ur Tricyclics Screen NEGATIVE (NEGATIVE) 12/12/18 04:35 Ur Phencyclidine Scrn NEGATIVE (NEGATIVE) 12/12/18 04:35 Amphetamines Screen NEGATIVE (NEGATIVE) 12/12/18 04:35 U Methamphetamines Scrn NEGATIVE (NEGATIVE) 12/12/18 04:35 U Benzodiazepines Scrn POSITIVE (NEGATIVE) H 12/12/18 04:35 U Cocaine Metab Screen NEGATIVE (NEGATIVE) 12/12/18 04:35 U Cannabinoids Screen NEGATIVE (NEGATIVE) 12/12/18 04:35 Ethyl Alcohol < 10 mg/dL (0-10) 12/11/18 11:20 RPR NONREACTIVE (NONREACTIVE) 12/11/18 11:20 - Physical Exam Vitals and I&O: Vital Signs Temp 98.4 F 12/14/18 14:33 Pulse 68 12/14/18 14:33 Resp 18 12/14/18 14:33 BP 87/56 12/14/18 14:33 Pulse Ox 94 12/14/18 12:10 Intake & Output 12/13/18 12/14/18 12/14/18 18:59 06:59 18:59 Intake Total 240 Balance 240 Weight (lbs) 45.359 kg 45.359 kg Intake: Tube Feeding 140 Other 100 Other: # Voids 2 # Bowel Movements 2 Weight Source Bedscale Bedscale Active Medications: Current Medications Acetaminophen (Tylenol 650mg/20.3ml Suspension) 1,000 mg GT Q4HR PRN PRN Reason: MODERATE PAIN Stop: 02/09/19 21:27 Acetaminophen (Tylenol 650mg/20.3ml Suspension) 650 mg GT Q4H PRN PRN Reason: MILD PAIN AND TEMP>101 Artificial Tears (Artificial Tears Ophth Soln) 1 drop EACH EYE BID PRN PRN Reason: DRY EYES Stop: 02/09/19 23:04 Bisacodyl (Dulcolax 10 Mg Supp) 10 mg RC DAILY PRN PRN Reason: IF MOM INEFFECTIVE Stop: 02/09/19 21:27 Carbidopa/Levodopa (Sinemet 25mg-100 Mg) 1 tab GT TID [facility] Stop: 02/10/19 08:59 Last Admin: 12/14/18 14:28 Dose: 1 tab Docusate Sodium (Colace) 100 mg PO DAILY [facility] Stop: 02/10/19 08:59 Last Admin: 12/14/18 09:06 Dose: 100 mg Donepezil HCl (Aricept) 10 mg GT DAILY [facility] Stop: 02/10/19 08:59 Last Admin: 12/14/18 09:07 Dose: 10 mg Fluoxetine HCl (Prozac) 20 mg GT DAILY [facility]; Protocol Stop: 02/10/19 08:59 Last Admin: 12/14/18 09:06 Dose: 20 mg Dextrose/Sodium Chloride (D5-0.45ns) 1,000 mls @ 75 mls/hr IV .[id number] [facility] Stop: 02/10/19 11:14 Last Admin: 12/14/18 11:05 Dose: 75 mls/hr Lorazepam (Ativan) 1 mg IM Q12H PRN; Protocol PRN Reason: Agitation Stop: 02/09/19 21:28 Last Admin: 12/13/18 18:37 Dose: 1 mg Lorazepam (Ativan) 1 mg IVP Q4HR PRN; Protocol PRN Reason: Anxiety Stop: 02/10/19 09:28 Last Admin: 12/12/18 23:08 Dose: 1 mg Magnesium Hydroxide (Milk Of Magnesia) 30 ml GT HS PRN PRN Reason: Constipation Stop: 02/09/19 21:28 Ondansetron HCl (Zofran Odt) 4 mg SL Q6H PRN PRN Reason: Nausea / Vomiting Pantoprazole Sodium (Protonix) 40 mg IVP QDAC [facility] Stop: 02/12/19 08:59 Last Admin: 12/14/18 10:10 Dose: Not Given Risperidone (Risperdal) 0.5 mg PO Q12HR [facility]; Protocol Stop: 02/12/19 08:59 Last Admin: 12/14/18 09:07 Dose: 0.5 mg Sodium Phosphate (Fleet Enema) 135 ml RC Q48H PRN PRN Reason: IF DULCOLAX INEFFECTIVE Stop: 02/09/19 21:28 Valproate Sodium (Depakene) 250 mg GT DAILY [facility] Stop: 02/10/19 12:59 Last Admin: 12/14/18 09:08 Dose: 250 mg Valproate Sodium (Depakene) 500 mg GT 1500 [facility] Stop: 02/10/19 14:59 Last Admin: 12/14/18 14:29 Dose: 500 mg General: demented HEENT: NC/AT, PERRLA Neck: Supple, No JVD Lungs: CTAB Cardiovascular: RRR, Normal S1 Abdomen: soft, non-tender, +GT Extremities: clear Neurological: no change, disorganized - Procedures Procedures: Procedures Procedure Code Date INSERTION OF FEEDING DEVICE INTO STOMACH, ENDO [id number] 12/11/18 Internal Medicine Assmt/Plan - Assessment Assessment: Dysphagia, S/p PEG Tube Gastritis Anemia Current Active Problems Problem Status Onset GASTRIC FEEDING TUBE DISLODGED, AGITATIO Acute HTN, CAD, Dyslipidemia, PUD/GERD, Dementia - Plan Plan: Monitor Hemoglobin levels Followup with GI,Continue GI orders IVF hydration cont snf meds as per order sheet Nutritional Asmnt/Malnutr-PDOC - Dietary Evaluation Malnutrition Findings (Please click <Entered> for more info): Nutritional Asmnt/Malnutrition Start: 12/12/18 15: 11 Text: Status: Complete Freq: Protocol: Document 12/12/18 15:11 LCHENG (Rec: 12/12/18 15:41 [email or web address] [id number]) Nutritional Asmnt/Malnutrition Patient General Information Nutritional Screening High Risk Diagnosis Gtube replacemnet, agitation Pertinent Medical Hx/Surgical Hx HTn, CAD, dyslipidemia, PUD, GERD, dementia, bipolar Subjective Information Pt seen lying in bed at time of visit. Per H&P, pt was agitated, pulled out Gtube at SN[facility]. Waiting for Gtube replacement. Current Diet Order/ Nutrition Support no diet order Pertinent Medications D5-0.45ns, colace, vancomycin Pertinent Labs 12/12 BUN 34 Nutritional Hx/Data Height 1.65 m Height (Calculated Centimeters) 165.1 Current Weight (lbs) 44.906 kg Weight (Calculated Kilograms) 44.9 Weight (Calculated Grams) [address]13.6 [place] Body Weight 125 Body Mass Index (BMI) 16.5 Weight Status Underweight GI Symptoms GI Symptoms None Last BM not indicated Difficult in: None Usual diet at home Glucerna 1.2 at 45ml/hr x 20hr at [facility] per pt chart, providing 1080kcal, 54g protein and 724ml free water, Oral gratification applesauce at noon. Skin Integrity/Comment: small scratch to right hip, g tube scar to abdomen Estimated Nutritional Goals BEE in Kcals: Using Current wt Calories/Kcals/Kg 30-35 Kcals Calculated [id number] Protein: Using Current wt Protein g/k.2-1.4 Protein Calculated 54-63 Fluid: ml 1350-1575ml (1ml/kcal) Nutritional Problem 1. Problem Problem inadequate energy intake Etiology Gtube malfunction Signs/Symptoms: no TF infusion at this time Intervention/Recommendation Comments 1. Initiate TF once Gtube replaced. Recommend Glucerna 1 .2 at 55ml/hr x 20hr. This will provide 1320kcal, 66g protein and 885ml free water, meeting 100% of nutritional needs. 2. Monitor TF rate, tolerance, wt, skin integrity and labs 3. F/U as high risk in 2-3 days Expected Outcomes/Goals Expected Outcomes/Goals 1. Pt to meet at least 90% of nutritional needs via nutrition support with tolerance 2. Wt stability, skin to remain intact, labs to approach WNL.
== END 2018-12-14 19:15 | DRG 391 ==
LOC: ER 09:43 → MSI 16:32
PROVIDERS: ADMIT Internal Medicine; ATTEND Internal Medicine
PROC: 0DB68ZX Excision of Stomach, Via Natural or Artificial Opening Endoscopic, Diagnostic (ICD-10-PCS; principal; 2018-12-13)
PROC: 0D20XUZ Change Feeding Device in Upper Intestinal Tract, External Approach (ICD-10-PCS; 2018-12-13)
DX: K29.70 Gastritis, unspecified, without bleeding (principal); E41 Nutritional marasmus; Z68.1 Body mass index [BMI] 19.9 or less, adult; R13.10 Dysphagia, unspecified; K27.9 Peptic ulcer, site unspecified, unspecified as acute or chronic, without hemorrhage or perforation; I10 Essential (primary) hypertension; I25.10 Atherosclerotic heart disease of native coronary artery without angina pectoris; E78.5 Hyperlipidemia, unspecified; K21.9 Gastro-esophageal reflux disease without esophagitis; F03.90 Unspecified dementia, unspecified severity, without behavioral disturbance, psychotic disturbance, mood disturbance, and anxiety; G20 Parkinson's disease; F02.80 Dementia in other diseases classified elsewhere, unspecified severity, without behavioral disturbance, psychotic disturbance, mood disturbance, and anxiety; F29 Unspecified psychosis not due to a substance or known physiological condition; D64.9 Anemia, unspecified
CPT/HCPCS: 36415-UA; 71045-TC; 80048-TC; 80053-TC; 80061-TC; 80076-TC; 80164-TC; 80307; 80320-TC; 80329-TC; 81001-TC; 82948-90; 82977-90; 84443-TC; 84484-TC; 85007-TC; 85025-TC; 85610-TC; 86592-TC; 87086-90; 87338-TC; 93005; J1200; J1630; J2060; J3370; J3480; Z7506; Z7610